=== PATIENT | male | born 1945 | race Caucasian/White ===

== ENCOUNTER 2020-01-24 09:31 | Emergency (ER) | payer MEDICARE, BC ==
[~2020-01-24] VITALS: Ht 182.9 cm; Wt 100.5 kg
[2020-01-24 09:34] VITALS: BP 138/88
[2020-01-24] MEDS ORDERED: TETanus/Pertussis (Acell)/Diphther VAC/PF (Tdap-Adult) 0.5ml syringe IMVAC ONE (09:55)
--- NOTE | 2020-01-24 10:43 | NUR ---
dressings to left 3rd and 4th digit is dry and intact
[2020-01-24] MEDS ORDERED: CEPH250T PO (11:54)
== END 2020-01-24 12:09 | disposition home or self-care (01) ==
LOC: ER 09:32
DX: S61.203A Unspecified open wound of left middle finger without damage to nail, initial encounter (principal); S61.205A Unspecified open wound of left ring finger without damage to nail, initial encounter; Z88.5 Allergy status to narcotic agent; Z79.2 Long term (current) use of antibiotics; W34.00XA Accidental discharge from unspecified firearms or gun, initial encounter; Y93.89 Activity, other specified; Y92.89 Other specified places as the place of occurrence of the external cause; Y99.8 Other external cause status
CPT/HCPCS: 73140; 90471; 90715; 99283

== ENCOUNTER 2020-08-27 02:30 | Emergency (ER) | payer MEDICARE, BC ==
[~2020-08-27] VITALS: Ht 182.9 cm; Wt 95.9 kg
[2020-08-27 03:11] VITALS: BP 144/96
== END 2020-08-27 03:12 | disposition home or self-care (01) ==
LOC: ER 02:30
DX: I10 Essential (primary) hypertension (principal); Z88.5 Allergy status to narcotic agent
CPT/HCPCS: 93005; 99283